=== PATIENT | female | born 1950 | race American Indian/Alaskan Native ===

== ENCOUNTER 2017-10-23 09:19 | Outpatient (CLI) | payer BC, MEDICARE ==
--- NOTE | 2017-10-23 10:47 | Ultrasound Report ---
ULTRASOUND PELVIC COMPLETE ULTRASOUND TRANSVAGINAL HISTORY: Left lower quadrant pain. COMPARISON: None. TECHNIQUE: Transabdominal and transvaginal ultrasound with color doppler interrogation. FINDINGS: The uterus is not visualized consistent with history of hysterectomy in 2015. No pelvic fluid collection, cyst or mass. The right ovary is unremarkable measuring 2.6 x 1.7 x 2.4 cm. The left ovary is not visualized. IMPRESSION: Unremarkable transabdominal and transvaginal pelvic ultrasounds. No clear explanation for left lower quadrant pain.
--- NOTE | 2017-10-23 16:06 | Mammography Report ---
BILATERAL DIGITAL SCREENING MAMMOGRAM with CAD: 10/23/17 09:19:00 CLINICAL: Routine screening. COMPARISON:None. A previous mammogram from [facility] is not available. FINDINGS: The breasts are mostly fatty with a few bilateral residual retroareolar fibroglandular densities. No mass, architectural distortion or suspicious calcifications. IMPRESSION: No mammographic evidence of malignancy. BI-RADS CATEGORY: 1 - - Negative RECOMMENDATION: Routine mammographic screening in one year. COMMENT: Patient follow-up letters are generated by our [employer] application.
== END 2017-10-23 09:20 | disposition home or self-care (01) ==
LOC: US 09:19
PROVIDERS: ATTEND Internal Medicine
DX: Z12.31 Encounter for screening mammogram for malignant neoplasm of breast (principal); R10.32 Left lower quadrant pain; I10 Essential (primary) hypertension; M19.90 Unspecified osteoarthritis, unspecified site; Z90.710 Acquired absence of both cervix and uterus
CPT/HCPCS: 76830; 76856; 77067